=== PATIENT | female | born 1980 | race Caucasian/White ===

== ENCOUNTER 2024-02-03 09:57 | Outpatient (CLI) | payer MEDICAID, SELFPAY ==
--- NOTE | 2024-02-03 10:00 | MM_ITS ---
WS: [id number] VIEWS: MLO and CC views both breasts. 3D digital tomosynthesis is also included in this exam. No priors. Baseline study. Findings: The breasts are heterogeneously dense, which may obscure small masses. There is a 12 mm lobulated nodule seen in the upper outer quadrant of the LEFT breast at mid depth. T his may represent a cyst. Regional ultrasound is recommended for further work-up. There is no sign of architectural distortion or tumoral calcification in either breast. No other significant finding. MM/MM scr BI tomosynthesis [id number] Impression: BI-RADS: 0 - Incomplete: Need additional imaging evaluation FOLLOW-UP: Need Additional Imaging This mammogram was also analyzed by the Computer Aided Detection System R2 Imag e Hook And Eye Machine Operator.
== END 2024-02-03 09:58 | disposition home or self-care (01) ==
LOC: MOBLMAM 10:03
PROVIDERS: PCP Nurse Practitioner Family; Visit Provider Nurse Practitioner Family
DX: Z12.31 Encounter for screening mammogram for malignant neoplasm of breast (principal); R92.333 Mammographic heterogeneous density, bilateral breasts; N63.21 Unspecified lump in the left breast, upper outer quadrant
CPT/HCPCS: 77063; 77067